=== PATIENT | female | born 2000 | race Caucasian/White ===

== ENCOUNTER 2023-09-29 11:37 | Observation (INO) | payer OTHER ==
[2023-09-29 12:48] LABS: EPI CELLS 17 /uL (0-25.1); HYALINE CASTS 1 /uL (0-3.1); PH,URINE 5.5 (5.0-8.0); URINE APPEARANCE CLEAR; URINE BACTERIA 29 /uL (0-1359); URINE BILIRUBIN NEGATIVE (NEGATIVE); URINE COLOR YELLOW; URINE GLUCOSE (UA) NEGATIVE (NEGATIVE); URINE KETONE NEGATIVE (NEGATIVE); URINE LEUK ESTERASE 2+ (NEGATIVE); URINE NITRITE NEGATIVE (NEGATIVE); URINE PROTEIN 1+ (NEGATIVE); URINE RBC 373 /uL (0-23.9); URINE UROBILINOGEN 0.2 mg/dL (0.2-1.0); URINE WBC 149 /uL (0-25.8)
[2023-09-29 13:06] LABS: BASO % 0.5 % (0-2.0); EOS % 4.1 % (0-4.5); HEMATOCRIT 40.3 % (32.4-45.2); HEMOGLOBIN 13.7 GM/dL (10.7-15.3); LYMPH % 25.5 % (8-40); MCH 30.8 pg (25.7-33.7); MEAN CELL VOLUME 90.5 fl (80-96); MEAN PLT VOLUME 8.3 fl (7.5-11.1); NEUT % 64.9 % (42.8-82.8); PLATELET COUNT 218 10^3/uL (134-434); RBC 4.45 M/mm3 (3.60-5.2); RDW 13.1 % (11.6-15.6)
[2023-09-29 13:08] LABS: INR 1.19 (0.83-1.09); PROTHROMBIN TIME (PATIENT) 13.4 SEC (9.7-13.0)
[2023-09-29 13:11] LABS: ACTIVATED PTT 32.2 SECONDS (25.2-36.5)
[2023-09-29 13:20] LABS: POTASSIUM 3.9 mmol/L (3.5-5.1)
[2023-09-29 13:22] LABS: CALCIUM 9.1 mg/dL (8.5-10.1)
[2023-09-29 13:23] LABS: ALBUMIN 3.8 g/dl (3.4-5.0); BLOOD UREA NITROGEN 16.5 mg/dL (7-18)
[2023-09-29 13:26] LABS: CREATININE 0.7 mg/dL (0.55-1.3)
[2023-09-29 13:27] LABS: TOT PROT 7.3 g/dl (6.4-8.2)
[2023-09-29 13:28] LABS: BILIRUBIN,TOTAL 0.5 mg/dL (0.2-1)
[2023-09-29 16:03] VITALS: BMI 28.1
[2023-09-29] MEDS: LACTATED RINGERS SOLUTION 1,000 ML/1,000 ML INFUS.BAG IV SCH (17:35)
[2023-09-29] MEDS ORDERED: MIDAZOLAM HCL 2 MG/2 ML SINGLE DOSE VIAL ONE ×2 (18:14→18:19)
[2023-09-29] MEDS ORDERED: FENTANYL CITRATE/PF 50 MCG/ML VIAL ONE ×2 (18:17→18:28)
[2023-09-29] MEDS ORDERED: PROPOFOL 20 ML ONE (18:33)
[2023-09-30] MEDS: ACETAMINOPHEN 325 MG TABLET (FP) PO PRN (01:30)
[2023-09-30 11:08] VITALS: BP 102/60; PULSE 62; RESP 20; TEMP 98.4
== END 2023-09-30 12:20 | disposition home or self-care (01) ==
LOC: JOR 11:37 → JER 11:37 → JERBED 13:53 → J8W 15:39
PROVIDERS: ADMIT Internal Medicine
PROC: 3E03329 Introduction of Other Anti-infective into Peripheral Vein, Percutaneous Approach (ICD-10-PCS; 2023-09-29)
PROC: 3E0337Z Introduction of Electrolytic and Water Balance Substance into Peripheral Vein, Percutaneous Approach (ICD-10-PCS; 2023-09-29)
PROC: 0TC47ZZ Extirpation of Matter from Left Kidney Pelvis, Via Natural or Artificial Opening (ICD-10-PCS; principal; 2023-09-29 17:00)
DX: N20.0 Calculus of kidney (principal); R10.32 Left lower quadrant pain; N39.0 Urinary tract infection, site not specified; J45.909 Unspecified asthma, uncomplicated; Z90.49 Acquired absence of other specified parts of digestive tract; F17.200 Nicotine dependence, unspecified, uncomplicated
CPT/HCPCS: 0241U-QW; 36415; 80053; 81003; 84703; 85025; 85610; 85730; 86850; 86900; 86901; 87086; 96361; 96374; 99285-25; G0378

== ENCOUNTER 2023-10-02 17:17 | Emergency (ER) | payer OTHER ==
[2023-10-02 17:43] VITALS: BP 111/69; PULSE 78; RESP 18; TEMP 98.6; BMI 26.6
[2023-10-02] MEDS ORDERED: ACETAMINOPHEN INJECTION 100 ML IVPB ONE (18:20)
[2023-10-02] MEDS ORDERED: METOCLOPRAMIDE HCL INJECTION 10 MG/2 ML VIAL ONE (18:20)
[2023-10-02] MEDS ORDERED: KETOROLAC TROMETHAMINE 30 MG/1 ML VIAL ONE (18:20)
[2023-10-02] MEDS: ACETAMINOPHEN 1000 MG/100 ML BAG IVPB ONE (18:28)
[2023-10-02] MEDS: SODIUM CHLORIDE 0.9% 500 ML INFUS.BAG IV ONE (18:28)
[2023-10-02] MEDS: METOCLOPRAMIDE HCL INJECTION 10 MG/2 ML VIAL IVPUSH ONE (18:29)
[2023-10-02] MEDS: KETOROLAC TROMETHAMINE 30 MG/1 ML VIAL IVPUSH ONE (18:29)
[2023-10-02 18:37] LABS: BASO % 0.4 % (0-2.0); EOS % 3.7 % (0-4.5); HEMOGLOBIN 15.3 GM/dL (10.7-15.3); LYMPH % 22.9 % (8-40); MCH 30.6 pg (25.7-33.7); MEAN CELL VOLUME 90.1 fl (80-96); MEAN PLT VOLUME 8.2 fl (7.5-11.1); MONO % 7.3 % (3.8-10.2); NEUT % 65.7 % (42.8-82.8); PLATELET COUNT 254 10^3/uL (134-434); RBC 4.99 M/mm3 (3.60-5.2); RDW 12.8 % (11.6-15.6); WHITE BLOOD COUNT 6.4 K/mm3 (4.0-10.0)
[2023-10-02 18:52] LABS: POTASSIUM 5.3 mmol/L (3.5-5.1)
[2023-10-02 18:53] LABS: CALCIUM 9.5 mg/dL (8.5-10.1)
[2023-10-02 18:54] LABS: BLOOD UREA NITROGEN 13.3 mg/dL (7-18)
[2023-10-02 18:57] LABS: CREATININE 0.8 mg/dL (0.55-1.3)
[2023-10-02 19:19] LABS: HCG,QUALITATIVE URINE Negative
[2023-10-02 19:22] LABS: EPI CELLS 25 /uL (0-25.1); HYALINE CASTS 0 /uL (0-3.1); URINE APPEARANCE CLEAR; URINE BACTERIA 91 /uL (0-1359); URINE BILIRUBIN NEGATIVE (NEGATIVE); URINE COLOR YELLOW; URINE GLUCOSE (UA) NEGATIVE (NEGATIVE); URINE KETONE NEGATIVE (NEGATIVE); URINE LEUK ESTERASE 2+ (NEGATIVE); URINE NITRITE NEGATIVE (NEGATIVE); URINE PROTEIN NEGATIVE (NEGATIVE); URINE RBC 97 /uL (0-23.9); URINE UROBILINOGEN 0.2 mg/dL (0.2-1.0); URINE WBC 62 /uL (0-25.8)
[2023-10-02] MEDS ORDERED: diphenhydrAMINE HCL 12.5 MG/5 ML UNIT-DOSE CUPS ONE (20:24)
== END 2023-10-02 20:29 | disposition home or self-care (01) ==
LOC: JERFT 17:17
PROC: 3E030NZ Introduction of Analgesics, Hypnotics, Sedatives into Peripheral Vein, Open Approach (ICD-10-PCS; principal; 2023-10-02)
PROC: 3E030GC Introduction of Other Therapeutic Substance into Peripheral Vein, Open Approach (ICD-10-PCS; 2023-10-02)
PROC: 3E030GC Introduction of Other Therapeutic Substance into Peripheral Vein, Open Approach (ICD-10-PCS; 2023-10-02)
PROC: 3E030GC Introduction of Other Therapeutic Substance into Peripheral Vein, Open Approach (ICD-10-PCS; 2023-10-02)
DX: J01.00 Acute maxillary sinusitis, unspecified (principal); G43.909 Migraine, unspecified, not intractable, without status migrainosus; R11.0 Nausea; R09.81 Nasal congestion
CPT/HCPCS: 36415; 80048; 81003; 84703; 85025; 87086; 99284-25; J0131

== ENCOUNTER 2024-10-29 01:16 | Emergency (ER) | payer OTHER ==
[2024-10-29 01:21] VITALS: BP 130/73; PULSE 104; RESP 20; TEMP 98.8; BMI 26.6
[2024-10-29] MEDS ORDERED: diphenhydrAMINE HCL 25 MG CAPSULE (FP) PO ONE (01:50)
[2024-10-29] MEDS: diphenhydrAMINE HCL 25 MG CAPSULE (FP) PO ONE (01:59)
== END 2024-10-29 02:43 | disposition home or self-care (01) ==
LOC: JER 01:16
DX: R21 Rash and other nonspecific skin eruption (principal); L29.9 Pruritus, unspecified; L53.9 Erythematous condition, unspecified; T36.0X5A Adverse effect of penicillins, initial encounter
CPT/HCPCS: 99283-25

== ENCOUNTER 2024-12-22 13:19 | Emergency (ER) | payer OTHER ==
[2024-12-22 13:30] VITALS: BP 101/64; PULSE 66; RESP 20; TEMP 98.4; BMI 25.4
[2024-12-22] MEDS ORDERED: ACETAMINOPHEN 500 MG TABLET (FP) ONE (14:16)
[2024-12-22] MEDS: ACETAMINOPHEN 500 MG TABLET (FP) PO ONE (14:27)
[2024-12-22 14:29] LABS: EPI CELLS >36 /uL (0-25.1); HCG,QUALITATIVE URINE Negative; HYALINE CASTS 2 /uL (0-3.1); URINE APPEARANCE CLOUDY; URINE BACTERIA 980 /uL (0-1359); URINE BILIRUBIN NEGATIVE (NEGATIVE); URINE COLOR YELLOW; URINE GLUCOSE (UA) NEGATIVE (NEGATIVE); URINE KETONE TRACE (NEGATIVE); URINE LEUK ESTERASE 2+ (NEGATIVE); URINE NITRITE NEGATIVE (NEGATIVE); URINE PROTEIN 2+ (NEGATIVE); URINE RBC 2575 /uL (0-23.9); URINE UROBILINOGEN 1.0 mg/dL (0.2-1.0); URINE WBC 659 /uL (0-25.8)
[2024-12-22 14:38] LABS: ABSOLUTE IMMATURE GRANULOCYTES 0.02 x10^3/uL (0.0-0.031); BASOPHILS # 0.03 x10^3/uL (0.01-0.08); EOSINOPHIL % 3.6 % (0.7-5.8); EOSINOPHILS # 0.23 x10^3/uL (0.04-0.36); MCHC 33.2 g/dl (32.2-35.5); MEAN CELL VOLUME 91.3 fl (79.4-94.8); MEAN PLT VOLUME 9.7 fl (9.4-12.3); MONOCYTE # 0.39 x10^3/uL (0.24-0.86); MONOCYTE % 6.2 % (4.7-12.5); RDW 13.2 % (12.1-16.5)
[2024-12-22 15:01] LABS: CO2 21.0 mmol/L (21-32); GLUCOSE,RANDOM 87.0 mg/dL (74-106)
[2024-12-22 15:04] LABS: CREATININE 0.7 mg/dL (0.55-1.3); SGOT/AST 18.0 U/L (15-37); SGPT/ALT 18.0 U/L (13-61)
[2024-12-22 15:05] LABS: TOT PROT 7.4 g/dl (6.4-8.2)
[2024-12-22 15:07] LABS: ALK PHOS 74.0 U/L (45-117)
[2024-12-22] MEDS: CEFPODOXIME PROXETIL 200 MG TABLET PO ONE (16:42)
== END 2024-12-22 17:07 | disposition home or self-care (01) ==
LOC: JER 13:19
DX: R31.9 Hematuria, unspecified (principal); N39.0 Urinary tract infection, site not specified
CPT/HCPCS: 36415; 74176-TC; 80053; 81003; 84703; 85025; 87086; 99284-25